=== PATIENT | male | born 1955 | race Caucasian/White ===

== ENCOUNTER → 2019-07-02 | Outpatient (CLI) | payer OTHER, SELFPAY ==
[2019-07-02 14:11] VITALS: BMI 30.4
[2019-07-02 16:01] LABS: Erythrocyte Sedimentation Rate 11 mm/hr (0-20)
[2019-07-02 16:18] LABS: Microalbumin,Random Urine < 5.0 mg/L (NO RANGE EST.)
[2019-07-02 16:38] LABS: ALB/GLOB Ratio 1.1 RATIO (0.9-2.4); AST(SGOT) 26 U/L (15-37); Alanine Aminotransfer ALT/SGPT 47 U/L (16-61); Albumin, Serum 4.1 g/dL (3.2-5.0); Alkaline Phosphatase 79 U/L (45-117); Anion Gap 6 (5-15); BUN 18 mg/dL (7-18); BUN/Creat Ratio 20.5 RATIO (10-20); CPK Total, Creatine Kinase 154 U/L (39-308); Chloride 100 mmol/L (98-107); Cholesterol 297 mg/dL (200); Creatinine, Serum 0.88 mg/dL (0.70-1.30); EST Glomerular Filtration Rate 94 mL/min (>60); Est Glom Filt Rate - Afr Amer 113 mL/min (>60); Globulin 3.8 g/dL (2.2-4.2); Glucose 237 mg/dL (74-106); High Density Lipoprotein 53 mg/dL; Potassium 3.8 mmol/L (3.5-5.1); Protein, Total 7.9 g/dL (6.4-8.2); Sodium Level 136 mmol/L (136-145); Thyroid Stim Hormone (TSH) 1.21 uIU/mL (0.358-3.74); Triglycerides 226 mg/dL; Very Low Density Lipoprotein 45 mg/dL (5-40)
== END | disposition home or self-care (01) ==
LOC: LAB 15:07
PROVIDERS: Referring Provider Internal Medicine Endocrinology, Diabetes & Metabolism; Visit Provider Internal Medicine Endocrinology, Diabetes & Metabolism
DX: E03.8 Other specified hypothyroidism (principal); E06.3 Autoimmune thyroiditis; E11.9 Type 2 diabetes mellitus without complications; M79.10 Myalgia, unspecified site; E78.2 Mixed hyperlipidemia
CPT/HCPCS: 36415; 80053; 80061; 82043; 82550; 82570; 84439; 84443; 85652

== ENCOUNTER → 2020-08-24 10:15 | Outpatient (CLI) | payer OTHER, SELFPAY ==
[2020-08-24 09:31] VITALS: BMI 31.7
[2020-08-24 13:01] LABS: ALB/GLOB Ratio 1.1 RATIO (0.9-2.4); AST(SGOT) 19 U/L (15-37); Alanine Aminotransfer ALT/SGPT 43 U/L (16-61); Albumin, Serum 3.9 g/dL (3.2-5.0); Alkaline Phosphatase 84 U/L (45-117); Anion Gap 8 (5-15); BUN 17 mg/dL (7-18); BUN/Creat Ratio 18.4 RATIO (10-20); Chloride 101 mmol/L (98-107); Cholesterol 264 mg/dL (200); Creatinine, Serum 0.92 mg/dL (0.70-1.30); EST Glomerular Filtration Rate 88 mL/min (>60); Est Glom Filt Rate - Afr Amer 106 mL/min (>60); Globulin 3.5 g/dL (2.2-4.2); Glucose 209 mg/dL (74-106); High Density Lipoprotein 49 mg/dL; Potassium 3.6 mmol/L (3.5-5.1); Protein, Total 7.4 g/dL (6.4-8.2); Sodium Level 137 mmol/L (136-145); T4 Free Direct 1.47 ng/dL (0.76-1.46); Thyroid Stim Hormone (TSH) 1.12 uIU/mL (0.358-3.74); Triglycerides 213 mg/dL; Very Low Density Lipoprotein 43 mg/dL (5-40)
[2020-08-24 13:16] LABS: Microalbumin,Random Urine < 5.0 mg/L (NO RANGE EST.)
[2020-08-25 17:06] LABS: Anti-Thyroglobulin AB < 1.0 IU/mL (0.0-0.9)
== END ==
PROVIDERS: Referring Provider Internal Medicine Endocrinology, Diabetes & Metabolism; Visit Provider Internal Medicine Endocrinology, Diabetes & Metabolism
DX: E11.9 Type 2 diabetes mellitus without complications (principal); E78.2 Mixed hyperlipidemia; E89.0 Postprocedural hypothyroidism; I10 Essential (primary) hypertension; C73 Malignant neoplasm of thyroid gland
CPT/HCPCS: 36415; 80053; 80061; 82043; 82570; 84432; 84439; 84443; 86800

== ENCOUNTER → 2021-06-01 09:16 | Outpatient (CLI) | payer OTHER, SELFPAY ==
[2021-06-01 12:32] LABS: Vitamin D,25 Hydroxy 36.5 ng/mL
[2021-06-01 12:42] LABS: AST(SGOT) 26 U/L (15-37); Alanine Aminotransfer ALT/SGPT 48 U/L (16-61); Alkaline Phosphatase 86 U/L (45-117); Anion Gap 6 (5-15); BUN 16 mg/dL (7-18); BUN/Creat Ratio 17.7 RATIO (10-20); Calcium,Total 9.4 mg/dL (8.5-10.1); Chloride 102 mmol/L (98-107); Cholesterol 210 mg/dL (200); EST Glomerular Filtration Rate 90 mL/min (>60); Est Glom Filt Rate - Afr Amer 109 mL/min (>60); Globulin 4.1 g/dL (2.2-4.2); Glucose 134 mg/dL (74-106); High Density Lipoprotein 57 mg/dL; Potassium 3.7 mmol/L (3.5-5.1); Protein, Total 8.1 g/dL (6.4-8.2); Sodium Level 138 mmol/L (136-145); T4 Free Direct 1.04 ng/dL (0.76-1.46); Thyroid Stim Hormone (TSH) 1.79 uIU/mL (0.358-3.74); Triglycerides 208 mg/dL; Very Low Density Lipoprotein 42 mg/dL (5-40)
[2021-06-01 12:51] LABS: Microalbumin,Random Urine < 5.0 mg/L (NO RANGE EST.)
== END ==
LOC: BIMLAB 09:17
PROVIDERS: Referring Provider Internal Medicine Endocrinology, Diabetes & Metabolism; Visit Provider Internal Medicine Endocrinology, Diabetes & Metabolism
DX: E10.42 Type 1 diabetes mellitus with diabetic polyneuropathy (principal); E78.2 Mixed hyperlipidemia; E89.0 Postprocedural hypothyroidism; I10 Essential (primary) hypertension; M79.10 Myalgia, unspecified site; E55.9 Vitamin D deficiency, unspecified; E78.5 Hyperlipidemia, unspecified
CPT/HCPCS: 36415; 80053; 80061; 82043; 82306; 82570; 84439; 84443

== ENCOUNTER 2021-09-14 09:19 | Outpatient (CLI) | payer OTHER, SELFPAY ==
[2021-09-14 13:30] LABS: PSA,Total - Annual Screen 2.39 ng/mL (0.00-4.00)
== END 2021-09-14 23:59 | disposition short-term general hospital (02) ==
LOC: BIMLAB 09:21
DX: Z12.5 Encounter for screening for malignant neoplasm of prostate (principal)
CPT/HCPCS: 36415; 84153; G0103

== ENCOUNTER → 2022-02-18 | Outpatient (CLI) | payer OTHER, SELFPAY ==
--- NOTE | 2022-02-18 14:26 | NEURO ---
NCS and/or EMG Patient Report Ordering Doctor: Edwin Ortega DATE OF SERVICE: 02/18/22 Indication: Approximately 5 year history of intermittent achiness in both lower extremities. Symptoms are sometimes felt in the joints, sometimes in the muscles. There is no associated sensory disturbance or loss of muscle strength. Findings: Nerve conduction studies were performed in the right and left lower extremities. The right peroneal motor study recording the extensor digitorum brevis showed a slightly reduced amplitude, normal distal latency and mildly slowed conduction velocity. No conduction block or focal slowing was present across the fibular neck. The right peroneal motor study recording the tibialis anterior showed a normal amplitude, normal distal latency and normal conduction velocity. No conduction block or focal slowing was present across the fibular neck. The right tibial motor study recording the abductor hallucis brevis showed a borderline normal amplitude, normal distal latency and mildly slowed conduction velocity. Right sural sensory response showed a normal amplitude and slowed conduction velocity. Right superficial peroneal sensory response showed a normal amplitude and mildly slowed conduction velocity. Right radial sensory response showed a normal amplitude and mildly slowed conduction velocity. The left peroneal motor study recording the extensor digitorum brevis showed a normal amplitude, normal distal latency and mildly slowed conduction velocity. No conduction block or focal slowing was present across the fibular neck. The left tibial motor study recording the abductor hallucis brevis showed a normal amplitude, normal distal latency and mildly slowed conduction velocity. Left sural sensory response showed a normal amplitude and mildly slowed conduction velocity. Left superficial peroneal sensory response showed a normal amplitude and conduction velocity. Needle EMG of the right lower extremity muscles was performed. No denervation was present in any muscle. All motor unit morphology, activation and recruitment patterns were normal. Needle EMG of the left lower extremity was omitted given the absence of findings in the right lower extremity along with increased risk of the examination with a patient on warfarin and aspirin. Impression: This is a borderline study. There is no definitive electrophysiologic evidence peripheral neuropathy in either the right or left lower extremity. The mildly slowed nerve conduction studies in the lower extremities (with relative preservation of sensory amplitudes) is of unclear significance. This may be the product of a very early, mild, peripheral neuropathy. Alternatively, this could be explained by slightly cool limb temperatures. A repeat comparison study could be considered in the next 6-12 months should the patient develop progressive sensory disturbances. Finally, there is no evidence of myopathy or radiculopathy in the right lower extremity. Cuong Ledbetter D.O. Multi Select Codes Neurology Neurology Interp Codes: 69978-61 Musc test done w/n test comp (interp) and 55466-67 Nrv cndj test 9-10 studies (interp)
== END | disposition home or self-care (01) ==
LOC: PSN 12:37
PROVIDERS: Referring Provider Internal Medicine Endocrinology, Diabetes & Metabolism; Visit Provider Internal Medicine Endocrinology, Diabetes & Metabolism
DX: M79.606 Pain in leg, unspecified (principal)
CPT/HCPCS: 95886; 95911

== ENCOUNTER → 2022-09-20 | Outpatient (CLI) | payer OTHER, SELFPAY ==
[2022-09-20 12:44] LABS: Vitamin D,25 Hydroxy 33.5 ng/mL
[2022-09-20 12:53] LABS: ALB/GLOB Ratio 1.1 RATIO (0.9-2.4); AST(SGOT) 19 U/L (15-37); Alanine Aminotransfer ALT/SGPT 41 U/L (16-61); Albumin, Serum 3.9 g/dL (3.2-5.0); Alkaline Phosphatase 81 U/L (45-117); Anion Gap 7 (5-15); BUN 19 mg/dL (7-18); Calcium,Total 9.2 mg/dL (8.5-10.1); Chloride 104 mmol/L (98-107); Cholesterol 205 mg/dL (200); EST Glomerular Filtration Rate 80 mL/min (>60); Est Glom Filt Rate - Afr Amer 96 mL/min (>60); Globulin 3.6 g/dL (2.2-4.2); Glucose 203 mg/dL (74-106); High Density Lipoprotein 57 mg/dL; Potassium 4.2 mmol/L (3.5-5.1); Protein, Total 7.5 g/dL (6.4-8.2); Sodium Level 139 mmol/L (136-145); Thyroid Stim Hormone (TSH) 0.71 uIU/mL (0.358-3.74); Triglycerides 207 mg/dL; Very Low Density Lipoprotein 41 mg/dL (5-40)
[2022-09-20 12:57] LABS: Microalbumin,Random Urine < 5.0 mg/L (NO RANGE EST.)
[2022-09-24 14:46] LABS: Anti-Thyroglobulin AB < 1.0 IU/mL (0.0-0.9); Thyroglobulin, Serum Qt. 1.2 ng/mL (1.4-29.2)
== END | disposition home or self-care (01) ==
LOC: BIMLAB 09:33
PROVIDERS: Referring Provider Internal Medicine Endocrinology, Diabetes & Metabolism; Visit Provider Internal Medicine Endocrinology, Diabetes & Metabolism
DX: C73 Malignant neoplasm of thyroid gland (principal); E11.9 Type 2 diabetes mellitus without complications; Z12.5 Encounter for screening for malignant neoplasm of prostate; E89.0 Postprocedural hypothyroidism; E78.2 Mixed hyperlipidemia; I10 Essential (primary) hypertension; E66.9 Obesity, unspecified; E55.9 Vitamin D deficiency, unspecified
CPT/HCPCS: 36415; 80053; 80061; 82043; 82306; 82570; 84153; 84432; 84439; 84443; 86800; G0103

== ENCOUNTER → 2023-09-18 | Outpatient (CLI) | payer OTHER, SELFPAY ==
--- OUTSIDE RECORDS SUMMARY | 2023-09-18 13:43 | XMS RPT_ITS | CCD ---
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 Role Phone Catracho Navarro Primary Care Provider Cuong Sanchez Primary Care Provider [phone] YASIR SARAVIA Referring Unavailable CUONG SANCHEZ Primary Care UnavailCuong Pichardo MD Primary Care Provider YASIR SARAVIA Referring Unavailable CUONG SANCHEZ Primary Care Unavailab franco Allergies Allergy Classification Reported Allergen(s) Allergy Type Date of Onset Reaction(s) Facility (5 sources) pitavastatin; Translations: [PITAVASTATIN] Drug Allergy 03-20-2016 Myalgia [facility] Medications Completed/Discontinued Medications Medication Drug Class(es) Dates Sig (Normalized) Sig (Original) acetaminophen 500 mg oral tablet (2 sources) take 1 tablet by mouth every eight hours as needed acetaminophen (TYLENOL) 500 mg tablet Take 500 mg by mouth every 8 hours as needed. 0 Active Problems Problem Classification Problem Date Documented Da te Episodic/Chronic Cancer of thyroid (3 sources) Malignant tumor of thyroid gland; Translations: [Malignant neoplasm of thyroid gland] 04-11-2016 Chronic Complications of surgical procedures or medical care (3 sources) Postoperative hypothyroidism; Translations: [Postprocedural hypothyroidism] 04-11-2016 Chronic Diabetes mellitus without complication (9 sources) Type 1 diabetes mellitus; Translations: [Type 1 diabetes mellitus with diabetic polyneuropathy] Onset: 10-25-2016 04-11-2016 Chronic Disorders of lipid metabolism (3 sources) Mixed hyperlipidemia; Translations: [Mixed hyperlipidemia] 04-11-2016 Chronic Essential hypertension (3 sources) Benign essential hypertension; Translations: [Essential (primary) hypertension] 10-25-2016 Chronic Immunizations and screening for infectious disease (1 source) Suspected disease caused by 2019-nCoV; Translations: [Suspected COVID-19 virus infection] Episodic Other nutritional; endocrine; and metabolic disorders (1 source) Body mass index 25-29 - overweight; Translations: [Overweight (BMI 25.0-29.9)] 10-25-2016 Chronic Other nutritional; endocrine; and metabolic disorders (2 sources) Body mass index 25-29 - overweight; Translations: [Overweight] 10-25-2016 Episodic Other screening for suspected conditions (not mental disorders or infectious disease) (2 sources) Patient encounter status; Translations: [Encounter for screening for cardiovascular disorders] Onset: 08-08-2023 08-08-2023 Episodic Peripheral and visceral atherosclerosis (1 source) Peripheral vascular disease, unspecified; Translations: [Peripheral vascular disease, unspecified] Onset: 12-13-2022 Chronic Results Test Name Value Interpretation Reference Range Facil ity Vital Signs Date Time Vital Sign Value Performing Clinician Faci lity 06-05-2022 11:27-0400 Body temperature 98.29 [degF] Esme Ortiz MD Work Phone: [facility] 06-05-2022 11:27-0400 Body weight 106.78 kg Esme Ortiz MD Work Phone: [facility] 06-05-2022 11:27-0400 Diastolic blood pressure 56 mm[Hg] Esme Ortiz MD Work Phone: [facility] 06-05-2022 11:27-0400 Heart rate 96 /min Esme Ortiz MD Work Phone: [facility] 06-05-2022 11:27-0400 Respiratory rate 18 /min Esme Ortiz MD Work Phone: [facility] 06-05-2022 11:27-0400 SaO2% (BldA) [Mass fraction] 97 % Esme Ortiz MD Work Phone: [facility] 06-05-2022 11:27-0400 Systolic blood pressure 103 mm[Hg] Esme Ortiz MD Work Phone: [facility] Encounters Encounter Date Encounter Type Care Provider Facility Start: 08-08-2023 ambulatory YASIR SARAVIA Faci lity:[phone] Start: 08-08-2023 End: 08-08-2023 Subsequent hospital visit by physician Zia Pierre Rm [facility] Procedures Date Procedure Procedure Detail Performing Clinician Start: 08-08-2023 Us abdominal aorta r eal time screen study aaa Yasir Saravia MD Work Phone: Start: 11-16-2020 Ecg routine ecg w/le ast 12 lds i&r only Start: 02-10-2020 Colonoscopy [facility] Plan of Treatment Date Care Activity Detail Author Start: 06-05-2023 BP CONTROLLED (<130/80) BP CONTROLLED (<130/80) [facility] Start: 05-09-2023 Influenza vaccination Influenza Vaccine (#1) [facility] Start: 09-08-2022 Advance Directive Discussion Advance Directive Discussion [facility] Start: 09-08-2022 Depression Assessment Depression Assessment [facility] Start: 05-09-2022 Influenza vaccination INFLUENZA (#1) [facility] Start: 2021 ADVANCE DIRECTIVE DISCUSSION ADVANCE DIRECTIVE DISCUSSION [facility] Start: 11-17-2021 Hepatitis B surface antibody level LDL CHOLESTEROL [facility] Start: 10-05-2021 COVID-19 VACCINE (4 - Booster for Pfizer series) COVID-19 VACCINE (4 - Booster for Pfizer series) [facility] Start: 09-08-2021 DEPRESSION ASSESSMENT DEPRESSION ASSESSMENT [facility] Start: 05-20-2021 Hemoglobin A1c/Hemoglobin.total in Blood HBA1C [facility] Start: 02-09-2021 Colonoscopy Colonoscopy [facility] Start: 02-09-2021 Colorectal Cancer Screening Colorectal Cancer Screening [facility] Start: 05-09-2020 Influenza vaccination INFLUENZA (#1) [facility] Start: 10-29-2019 [object Object] DIABETIC FOOT EXAM [facility] Start: 07-31-2019 HbA1c (Bld) [Mass fraction] HBA1C [facility] Start: 04-02-2019 Hepatitis B screening URINE ALBUMIN:CREATININE RATIO [facility] Start: 04-02-2019 Hepatitis B surface antibody level LDL CHOLESTEROL [facility] Start: 03-06-2019 Hepatitis C antibody, confirmatory test DILATED RETINAL EXAM [facility] Start: 2016 RSV Vaccine (1 - 1-dose 60+ series) RSV Vaccine (1 - 1-dose 60+ series) [facility] Start: 12-06-2011 PROSTATE CANCER SCREENING DISCUSSION PROSTATE CANCER SCREENING DISCUSSION [facility] Start: 2006 COLORECTAL CANCER SCREENING,SEE MODIFIER COLORECTAL CANCER SCREENING,SEE MODIFIER [facility] Start: 2006 SHINGRIX VACCINE (1 of 2) SHINGRIX VACCINE (1 of 2) [facility] Start: 2001 COLOGUARD (FIT-DNA) COLOGUARD (FIT-DNA) [facility] Start: 2001 Colonoscopy COLONOSCOPY [facility] Start: 2001 COLORECTAL CANCER SCREENING COLORECTAL CANCER SCREENING [facility] Start: [address] COLONOGRAPHY [facility] Start: 2001 FECAL OCCULT BLOOD FECAL OCCULT BLOOD [facility] Start: 2001 SIGMOIDOSCOPY SIGMOIDOSCOPY [facility] Start: 12-06-1975 Urine microalbumin profile [facility] Start: 1974 ANNUAL PCP TEAM CHRONIC DISEASE VISIT ANNUAL PCP TEAM CHRONIC DISEASE VISIT [facility] Start: 1974 BP CONTROLLED (<130/80) BP CONTROLLED (<130/80) [facility] Start: 1974 HEPATITIS C SCREENING HEPATITIS C SCREENING [facility] Start: 1974 HIV SCREENING HIV SCREENING [facility] Start: 1972 ONE PNEUMOVAX PRIOR TO AGE 65 ONE PNEUMOVAX PRIOR TO AGE 65 [facility] Start: 1962 PNEUMOCOCCAL: 65+ (1 - PCV) PNEUMOCOCCAL: 65+ (1 - PCV) [facility] SARS-CoV-2 (COVID-19 ) RNA [Presence] in Respiratory specimen by WENDIE with probe detection 2019 CORONAVIRUS Microbiology Routine Suspected COVID-19 virus infection 06/05/2022 11:41 AM EDT [facility] Work Phone: Immunizations Immunization Date Immunization Notes Care Provider Eliane mancilla 07-08-2022 influenza virus vacc ine, unspecified formulation Zia 4 [facility] Payers Date Payer Category Payer Private Health Insurance [id number] 2019 Private Health Insurance [id number] 2018 Private Health Insurance [employer] CHOICE POS II [id number] 2018-2019 POS [id number] Social History Date Type Detail Facility Start: 04-11-2016 End: 07-28-2018 Tobacco smoking status NHIS Never smoker [facility] Start: 04-11-2016 End: 07-28-2018 Tobacco use and exposure Never used [facility] Start: 07-28-2018 End: 06-05-2022 Alcohol intake Current drinker of alcohol (finding) [facility] Start: 04-11-[address] [facility] Start: 1955 Sex Assigned At Not on file C [facility] Exposure to SARS-CoV -2 (event) Unable to assess [facility] Start: 06-05-2022 History SDOH Alcohol Comment social [facility] Start: 05-26-2022 End: 06-05-2022 Exposure to SARS-CoV-2 (event) Not sure [facility] Start: 06-05-2022 End: 12-13-2022 History of Social function [facility] Start: 06-05-2022 End: 12-13-2022 Tobacco use panel [facility] National Score (1-10 0), lower number is lower risk 82 [facility] Medical Equipment Procedure Code Equipment Code Equipment Origin al Text Equipment Identifier Dates Start: 01-28-2019 Instructions 06-05-2022 Patient Instructions Note Date & Type Note Facility 06-05-2022 Instructions Esme Ortiz MD - 06/05/2022 11:41 AM EDT Gargle, lozenges OTC med as needed Recheck if any change F/u PCP explained details Quarantine until the result is available May use [id number] Coricidin HBP for symptom relief documented in this encounter [facility] History of Present illness Narrative 06-05-2022 Esme Ortiz MD - 06/05/2022 11:38 AM EDT Note Date & Type Note Facility 06-05-2022 History of Presen t illness Narrative Timur Barrett is a 66 year old MALE who presents with Body Aches (Yesterday ), Sore Throat, Cough, and Congestion Cough congestion sore throat Body ache tired and fatigue No vomiting or diarrhea No shortness of breath No appetite Concern of COVID-19, no confirmed exposure PAST MEDICAL HISTORY Diagnosis Date Anxiety BMI 31.0-31.9,adult Body mass index (bmi) 30.0-30.9, adult Essential (primary) hypertension Goiter Goiter, nontoxic, multinodular Hypothyroidism, postsurgical snf (current) use of insulin (HCC) Malignant neoplasm of thyroid gland (HCC) Mixed hyperlipidemia Obesity (BMI 30-39.9) Overweight Thyroid disorder Type 1 diabetes mellitus with diabetic polyneuropathy (HCC) Type 1 diabetes mellitus with unspecified diabetic retinopathy without macular edema (HCC) Type 1 diabetes mellitus without complication (HCC) ACTIVE PROBLEM LIST Essential Hypertension, Benign Mixed Hyperlipidemia Malignant Neoplasm of Thyroid Gland (Hcc) Hypothyroidism, Postsurgical Overweight (Bmi 25.0-29.9) Type 1 Diabetes Mellitus With Diabetic Polyneuropathy (Hcc) Type 1 Diabetes Mellitus With Unspecified Diabetic Retinopathy Without Macular Edema (Hcc) Type 1 Diabetes Mellitus With Hyperglycemia, With Long-Term Current Use of Insulin (Hcc) Current Outpatient Medications Medication Sig Dispense Refill clopidogrel (PLAVIX) 75 mg tablet Take 75 mg by mouth once daily. triamcinolone (KENALOG IN ORABASE) 0.1 % paste APPLY THIN FILM TWICE A DAY TO LESION AREA acetaminophen (TYLENOL) 500 mg tablet Take 500 mg by mouth every 8 hours as needed. DM/p-ephed/acetaminoph/doxylam (NYQUIL ORAL) Take by mouth as needed. hydroCHLOROthiazide (HYDRODIURIL, ESIDRIX) 25 mg tablet Take 1 tablet by mouth once daily. 30 tablet 0 BD INSULIN SYRINGE UF 0.5 mL 30 gauge x 1/2 syrg 8 times daily 750 Syringe 2 blood sugar diagnostic (ONETOUCH VERIO) test strip Test 5 times daily 450 Strip 3 empagliflozin (JARDIANCE) 25 mg tablet Take 1 tablet by mouth once daily. 90 tablet 2 insulin lispro (HUMALOG U-100 INSULIN) 100 unit/mL injection Inject 50 units subcutaneously 3 times daily before meals plus sliding scale. Patient uses up to 200 units a day. 18 Vial 2 insulin detemir U-100 (LEVEMIR U-100 INSULIN) 100 unit/mL injection Inject 70 Units subcutaneously daily at bedtime. 7 Vial 3 levothyroxine (SYNTHROID) 175 mcg tablet Take 1 tablet by mouth once daily. 90 tablet 2 aspirin, enteric coated (ASPIRIN, ENTERIC COATED) 325 mg EC tablet Take 325 mg by mouth once daily. MULTIVITAMIN (MULTIPLE VITAMIN ORAL) Take by mouth. diazePAM (VALIUM) 5 mg tablet Take 5 mg by mouth as needed. rosuvastatin (CRESTOR) 10 mg tablet Take 10 mg by mouth once daily. (Patient not taking: Reported on 06/05/2022) losartan (COZAAR) 100 mg tablet Take 1 tablet by mouth once daily. (Patient not taking: Reported on 06/05/2022) 30 tablet 0 losartan-hydrochlorothiazide (HYZAAR) 100-25 mg per tablet Take 1 tablet by mouth once daily. (Patient not taking: Reported on 06/05/2022) 90 tablet 2 No current facility-administered medications for this visit. Social History Tobacco Use Smoking status: Never Smokeless tobacco: Never Vaping Use Vaping Use: Never used Substance Use Topics Alcohol use: Yes Comment: social Drug use: Never Alcohol Use: Yes (social) Tobacco Use: Never FAMILY HISTORY Problem Relation Age of Onset Cancer Paternal Aunt Diabetes Father Diabetes Paternal Grandmother Stroke Paternal Uncle Review of Systems Constitutional: Positive for malaise/fatigue. HENT: Positive for congestion and sore throat. Eyes: Negative. Respiratory: Positive for cough. Cardiovascular: Negative. Neurological: Negative. BP 103/56 Pulse 96 Temp (Src) 98.3 (Temporal) Resp 18 Wt 235 lb 6.4 oz (106.8kg) SpO2 97% Physical Exam Constitutional: General: He is not in acute distress. Appearance: Normal appearance. He is not ill-appearing or toxic-appearing. HENT: Nose: Congestion present. Mouth/Throat: Mouth: Mucous membranes are moist. Pharynx: Oropharynx is clear. Comments: Pharynx not injected Cardiovascular: Rate and Rhythm: Normal rate and regular rhythm. Heart sounds: Normal heart sounds. Pulmonary: Effort: Pulmonary effort is normal. Breath sounds: Normal breath sounds. Musculoskeletal: Cervical back: Normal range of motion and neck supple. No rigidity. Lymphadenopathy: Cervical: No cervical adenopathy. Neurological: Mental Status: He is alert. ASSESSMENT/PLAN: 1. Suspected COVID-19 virus infection - ICD9: V01.79, ICD10: Z20.822 - 2019 CORONAVIRUS Gargle, lozenges OTC med as needed Recheck if any change F/u PCP explained details Quarantine until the result is available May use [id number] Coricidin HBP for symptom relief Patient understood Esme Ortiz MD documented in this encounter [facility] Discharge summary note 11-17-2020 Note Date & Type Note Facility 11-17-2020 Note Gabby [facility]real Evaluation note Note Date & Type Note Facility documented in this encounter [facility] Evaluation note Note Date & Type Note Facility documented in this encounter [facility] Summary Purpose Family History No Family History Records FoundNo Family History Records FoundNo Family History Records FoundNo Family History Records FoundNo Family History Records Found Advance Directives No Advanced Directives Records FoundNo Advanced Directives Records FoundNo Advanced Directives Records FoundNo Advanced Directives Records FoundNo Advanced Directives Records Found Reason for Referral Specialty Diagnoses / Procedures Referred By Contac t [facility] Diagnoses Screening for AAA (abdominal aortic aneurysm) Procedures SCREENING AORTA DUPLEX (2017) US ABDOMINAL AORTA REAL TIME SCREEN STUDY AAA Yasir Saravia MD [address] [address] [facility] [address] [place] [id number] Referral ID Status Reason Start Date Expiration Date V isits Requested Visits Authorized [id number] Closed Auto-Generate d Referral 08/08/2023 09/07/2023 1 1 Additional Source Comments (unrecognized sect ion and content) No Status Records FoundNo Status Records FoundNo Status Records FoundNo Status Records FoundNo Status Records Found INFORMATION SOURCE (unrecogn ized section and content) DATE CREATED AUTHOR AUTHOR'S ORGANIZ ATION 02/10/2020 [facility] DATE CREATED AUTHOR AUTHOR'S ORGANIZ ATION 09/24/2021 Gabby Monreal DATE CREATED AUTHOR AUTHOR'S ORGANIZ ATION 12/22/2022 [facility] DATE CREATED AUTHOR AUTHOR'S ORGANIZ ATION 08/10/2023 [facility] Source Comments (unrecognize d section and content) In the event this informatio n is protected by the Federal Confidentiality of Alcohol and Drug Abuse Patient Records regulations: The Federal rules restrict any use of the information to criminally investigate or prosecute any alcohol or drug abuse patient[facility] the event this information is protected by the Federal Confidentiality of Alcohol and Drug Abuse Patient Records regulations: The Federal rules restrict any use of the information to criminally investigate or prosecute any alcohol or drug abuse patient.[facility] the event this information is protected by the Federal Confidentiality of Alcohol and Drug Abuse Patient Records regulations: The Federal rules restrict any use of the information to criminally investigate or prosecute any alcohol or drug abuse patient.[facility] Reason for Visit (unrecogniz ed section and content) Reason Comments Body Aches Yesterday Sore Throat Cough Congestion Specialty Diagnoses / Procedures Referred By Contac t Referred To [facility] Diagnoses Screening for AAA (abdominal aortic aneurysm) Procedures SCREENING AORTA DUPLEX (2017) US ABDOMINAL AORTA REAL TIME SCREEN STUDY AAA Yasir Saravia MD [address] [place] [address] [facility] [address] [place] [address] Referral ID Status Reason Start Date Expiration Date V isits Requested Visits Authorized [id number] Closed Auto-Generate d Referral 08/08/2023 09/07/2023 1 1 Telephone Encounter - Cee Clemons - 07/29/2018 10:51 AM EST Miscellaneous Notes (unrecog nized section and content) Patient called and and states he was here yesterday For a appointment. He states everything that you E Scripted over yesterday needs to go to his [employer] mail away. He couldn't give me the name of his mail away pharmacy. 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 This clinical summary was aggregated from multiple sources. Caution should be exercised in using it in the provision of clinical care. This summary normalizes information from multiple sources, and as a consequence, information in this document may materially change the coding, format and clinical context of patient data. In addition, data may be omitted in some cases. CLINICAL DECISIONS SHOULD BE BASED ON THE PRIMARY CLINICAL RECORDS. [employer] provides no warranty or guarantee of the accuracy or completeness of information in this document.
[2023-09-18 15:36] LABS: Absolute Lymphocyte Count 1.85 X10^3/uL (0.83-4.51); Absolute Neutrophil Count 2.9 X10^3/uL (2.0-7.7); Basophil# 0.07 X10^3/uL; Basophil% 1.3 % (0-1); Eosinophil# 0.07 X10^3/uL; Eosinophils% 1.3 % (0-5); Hematocrit 45.6 % (40-54); Hemoglobin 14.9 g/dL (13.0-16.5); Lymphocyte # 1.85 X10^3/ul (0.83-4.51); Lymphocyte % 35.2 % (19-41); Mean Corp Hgb Conc 32.7 g/dL (32-36); Mean Corpuscular Hgb 29.1 pg (27.0-32.0); Mean Corpuscular Volume 89.1 fL (80-94); Mean Platelet Vol. 10.6 fl (6.2-12.0); Monocyte# 0.37 X10^3/uL; NRBC Flagged by Analyzer 0 % (0-5); Neutrophil # 2.89 X10^3/uL (2.7-7.7); Platelet Count 241 K/mm3 (150-450); RBC Distribution Width CV 13.4 % (11.6-14.6); RBC Distribution Width SD 43.5 fl (35.1-43.9); Red Blood Count 5.12 M/mm3 (4.6-6.2); White Blood Count 5.3 K/mm3 (4.4-11.0)
[2023-09-18 15:50] LABS: Vitamin D,25 Hydroxy 45.9 ng/mL
[2023-09-18 15:58] LABS: ALB/GLOB Ratio 1.1 RATIO (0.9-2.4); AST(SGOT) 18 U/L (15-37); Alanine Aminotransfer ALT/SGPT 33 U/L (16-61); Albumin, Serum 3.9 g/dL (3.2-5.0); Alkaline Phosphatase 89 U/L (45-117); Anion Gap 9 (5-15); BUN 22 mg/dL (7-18); BUN/Creat Ratio 23.7 RATIO (10-20); Calcium,Total 8.5 mg/dL (8.5-10.1); Chloride 100 mmol/L (98-107); Cholesterol 292 mg/dL (200); Creatinine, Serum 0.93 mg/dL (0.70-1.30); EST Glomerular Filtration Rate 87 mL/min (>60); Est Glom Filt Rate - Afr Amer 105 mL/min (>60); Globulin 3.7 g/dL (2.2-4.2); Glucose 280 mg/dL (74-106); High Density Lipoprotein 51 mg/dL; Potassium 3.8 mmol/L (3.5-5.1); Protein, Total 7.6 g/dL (6.4-8.2); Sodium Level 135 mmol/L (136-145); Thyroid Stim Hormone (TSH) 1.75 uIU/mL (0.358-3.74); Triglycerides 200 mg/dL; Very Low Density Lipoprotein 40 mg/dL (5-40)
[2023-09-18 16:31] LABS: Microalbumin,Random Urine < 5.0 mg/L (NO RANGE EST.)
== END | disposition home or self-care (01) ==
LOC: BIMLAB 13:03
PROVIDERS: Referring Provider Internal Medicine Endocrinology, Diabetes & Metabolism; Visit Provider Internal Medicine Endocrinology, Diabetes & Metabolism
DX: E10.319 Type 1 diabetes mellitus with unspecified diabetic retinopathy without macular edema (principal); E89.0 Postprocedural hypothyroidism; E78.2 Mixed hyperlipidemia; I10 Essential (primary) hypertension; E55.9 Vitamin D deficiency, unspecified
CPT/HCPCS: 36415; 80053; 80061; 82043; 82306; 82570; 84443; 85025

== ENCOUNTER → 2024-07-05 | Outpatient (CLI) | payer OTHER, SELFPAY ==
[2024-07-05 12:27] LABS: Vitamin D,25 Hydroxy 34.4 ng/mL
[2024-07-05 12:45] LABS: AST(SGOT) 21 U/L (15-37); Alanine Aminotransfer ALT/SGPT 27 U/L (16-61); Albumin, Serum 3.7 g/dL (3.2-5.0); Alkaline Phosphatase 93 U/L (45-117); Anion Gap 6 (5-15); BUN 20 mg/dL (7-18); BUN/Creat Ratio 23.8 RATIO (10-20); Chloride 104 mmol/L (98-107); Cholesterol 219 mg/dL (200); Creatinine, Serum 0.84 mg/dL (0.70-1.30); EST Glomerular Filtration Rate 97 mL/min (>60); Est Glom Filt Rate - Afr Amer 117 mL/min (>60); Globulin 3.6 g/dL (2.2-4.2); Glucose 173 mg/dL (74-106); High Density Lipoprotein 61 mg/dL; Potassium 4.9 mmol/L (3.5-5.1); Protein, Total 7.3 g/dL (6.4-8.2); Sodium Level 139 mmol/L (136-145); Thyroid Stim Hormone (TSH) 0.047 uIU/mL (0.358-3.740); Triglycerides 141 mg/dL; Very Low Density Lipoprotein 28 mg/dL (5-40)
[2024-07-05 12:55] LABS: Microalbumin,Random Urine < 5.0 mg/L (NO RANGE EST.)
== END | disposition home or self-care (01) ==
LOC: BIMLAB 09:02
PROVIDERS: Referring Provider Internal Medicine Endocrinology, Diabetes & Metabolism; Visit Provider Internal Medicine Endocrinology, Diabetes & Metabolism
DX: E10.65 Type 1 diabetes mellitus with hyperglycemia (principal); E89.0 Postprocedural hypothyroidism; M79.10 Myalgia, unspecified site; E78.2 Mixed hyperlipidemia; I10 Essential (primary) hypertension; E55.9 Vitamin D deficiency, unspecified
CPT/HCPCS: 36415; 80053; 80061; 82043; 82306; 82570; 84439; 84443